=== PATIENT | male | born 1970 | race Caucasian/White ===

== ENCOUNTER → 2020-07-16 11:47 | Outpatient (CLI) | payer SELFPAY ==
--- NOTE | 2020-07-16 | DI.RAD.S_ITS ---
PROCEDURE: XR LUMBAR SPINE 2-3V INDICATIONS: LBP TECHNIQUE: 3 views of the lumbar spine were acquired. COMPARISON: None. FINDINGS: Bones: 5 [id number]-[id number] vertebrae are present. There is normal bony alignment. No vertebral body compression fractures. Degenerative endplate changes throughout lower thoracic and lumbar spine is seen. No suspicious bony lesions. Soft tissues: Overlying bowel gas pattern is normal. No suspicious soft tissue calcifications. IMPRESSION: Mild degenerative disc disease throughout lumbar spine. No acute compression fracture or spondylolisthesis. Dictated by: Duncan Conti M.D. on 07/16/2020 at 14:27 Approved by: Duncan Conti M.D. on 07/16/2020 at 14:27
== END ==
DX: M54.5 Low back pain (principal); M51.36 Other intervertebral disc degeneration, lumbar region
CPT/HCPCS: 72100

== ENCOUNTER → 2024-04-07 08:00 | Outpatient (CLI) | payer OTHER, SELFPAY | PROVIDERS: PCP Family Medicine; Referring Provider Family Medicine; Visit Provider Surgery | DX: Z53.8 Procedure and treatment not carried out for other reasons (principal) ==

== ENCOUNTER 2024-12-07 11:19 | Emergency (ER) | payer BC, SELFPAY ==
[2024-12-07 11:37] VITALS: BP 140/87; PULSE 90; RESP 20; TEMP 37; O2SAT 100; BMI 30.7
--- NOTE | 2024-12-07 11:49 | DI.RAD.S_ITS ---
PROCEDURE: XR CHEST 1V INDICATIONS: chest pain TECHNIQUE: One view of the chest was acquired. COMPARISON: None. FINDINGS: Surgical changes and devices: None. Lungs and pleura: Lungs are clear. No pleural effusions or pneumothorax. Mediastinum: Mediastinal contours appear normal. Heart size is normal. Bones and chest wall: No suspicious bony lesions. Overlying soft tissues appear unremarkable. IMPRESSION: No acute cardiopulmonary abnormality is seen. Dictated by: Lester Goetz M.D. on 12/07/2024 at 12:38 Approved by: Lester Goetz M.D. on 12/07/2024 at 12:42
--- NOTE | 2024-12-07 11:52 | PC.NURSE ---
1150 pt called x3 to do line/labs/ekg. Not in waiting room.
--- NOTE | 2024-12-07 12:31 | EKG_ITS ---
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
[2024-12-07 12:46] LABS: Add Manual Diff / Slide Review NO; Basophils Absolute Auto 100 /uL (0-100); Basophils Percent Auto 0.8 % (0-2); Eosinophils Absolute Auto 100 /uL (0-450); Eosinophils Percent Auto 1.3 % (2-4); Hematocrit 33.5 % (41-53); Hemoglobin 10.8 g/dL (13.5-17.5); Lymphocytes Absolute Auto 1400 /uL (1100-4500); Lymphocytes Percent Auto 15.7 % (25-40); Mean Corpuscular HGB Conc 32.3 % (30-36); Mean Corpuscular Hemoglobin 25.3 PG (26-34); Mean Corpuscular Volume 78.4 fL (80-100); Monocytes Absolute Auto 500 /uL (0-900); Monocytes Percent Auto 5.6 % (3-14); Neutrophils Absolute Auto 6800 /uL (1500-7000); Neutrophils Percent Auto 76.6 % (50-75); Platelet Count 442 X10^3/uL (150-400); Red Blood Cell Count 4.27 X10^6/uL (4.5-5.9); Red Cell Distribution Width 17.5 % (11.6-14.8); White Blood Cell Count 8.9 X10^3/uL (4.5-11.0)
[2024-12-07 12:54] LABS: Prothrombin Time 11.8 SECONDS (9.4-12.5)
[2024-12-07 12:57] LABS: PTT Partial Thromboplastin Tim 35 SECONDS (25.1-36.5)
[2024-12-07 12:58] LABS: Alanine Aminotransferase 40 IU/L (<50); Albumin 4.1 g/dL (3.5-5.0); Albumin Globulin Ratio 1.3 (1.0-2.8); Alkaline Phosphatase 98 U/L (38-126); Aspartate Aminotransferase 27 IU/L (17-59); BUN Creatinine Ratio 14.1 (6-22); Bilirubin Total 0.3 mg/dL (0.2-1.3); Blood Urea Nitrogen 14 mg/dL (9-20); Calcium 8.8 mg/dL (8.4-10.2); Carbon Dioxide 26 mmol/L (22-32); Chloride 103 mmol/L (98-107); Creatine Kinase 169 U/L (55-170); Estimated Glomerular Filt Rate > 60 mL/min (>60); Globulin 3.1 g/dL (1.7-4.1); Glucose 145 mg/dL (70-100); HEMOLYSIS < 15 (0-50); Lipase 64 U/L (23-300); Magnesium 1.9 mg/dL (1.6-2.3); Sodium 139 mmol/L (137-145); Total Protein 7.2 g/dL (6.3-8.2)
[2024-12-07 13:10] LABS: NT-proBNP (BNP-Adult 18+) 60 pg/mL (<125); Troponin I < 0.012 ng/mL (0.01-0.034)
[2024-12-07 14:00] VITALS: PULSE 90; O2SAT 100
[2024-12-07 14:01] VITALS: BP 158/90; PULSE 95; RESP 16; O2SAT 100
--- NOTE | 2024-12-07 14:08 | PC.NURSE ---
Lungs are clear. Pt breathing as though there is an obstruction in throat. Does not appear in respiratory distress. Sats 100% on RA. When answering questions or talking on phone throat breathing stops.
--- NOTE | 2024-12-07 14:52 | ED.SOB ---
HPI - SOB/Dyspnea General Chief Complaint: Urogenital-Male Stated Complaint: Semen back up/ check breathing Time Seen by Provider: 12/07/24 14:27 Source: patient Mode of arrival: Ambulatory Limitations: no limitations History of Present Illness HPI Narrative: Patient is a 54-year-old male who admits to using methamphetamine presents today with bilateral testicular pain and back. He feels like his semen is backing up causing some hardening in his testicle. He has had increased masturbation to try and relieve the pressure and pain. He does audible shortness of breath but he actually denies any kind of shortness of breath. No chest pain fever or chills. He denies absolutely any sort of injury to his testicles. He has no penile drainage. Reports no concern for STDs. Patient no to have kind of a hoarse voice and states that his voice has been like this for about 6 months. Denies any tobacco smoking. Related Data Previous Rx's Medication Instructions Recorded peg 3350-sod sulf,dtpqg-[id number] 1,000 ml PO DIRECTED #2,000 mL 03/03/24 178.7-7.3-0.5-1.12-0.9 gram oral soln (Suflave) doxycycline hyclate 100 mg capsule 100 mg PO BID #14 caps 12/07/24 Allergies Allergy/AdvReac Type Severity Reaction Status Date / Time No Known Drug Allergies Allergy Unverified 12/07/24 11:17 Patient History Medical History (Updated 12/07/24 @ 18:47 by Caryn Webster DO) Anxiety Shoulder pain Fracture Foot pain Carpal tunnel syndrome Ankle pain Hemorrhoids Heartburn Chronic low back pain Periumbilical hernia Family History (Updated 12/01/23 @ 15:31 by Jerald Jason MD) Grandfather Prostate cancer Social History Smoking Status: Never smoker alcohol intake: current (6/wk) substance use type: marijuana (2-3x per week) Smoking Status: Never smoker Exam Initial Vital Signs Initial Vital Signs: Vital Signs Temperature 98.6 F 12/07/24 11:37 Pulse Rate 90 12/07/24 11:37 Respiratory Rate 20 12/07/24 11:37 Blood Pressure 140/87 12/07/24 11:37 Pulse Oximetry 100 12/07/24 11:37 Oxygen Delivery Method Room Air 12/07/24 11:37 GENERAL: Alert well-appearing 74-year-old male and in no acute distress. HEENT: Head atraumatic,EOMI, pupils reactive, face symmetric, moist mucous membranes CARDIOVASCULAR: Regular rate and rhythm without murmurs, rubs or gallops. RESPIRATORY: Clear breath sounds bilaterally some wheezing with inhalation but no exhalation no obvious respiratory distress speaks in full sentences without any sort of difficulty ABDOMEN: Soft, nontender. Normoactive bowel sounds all 4 quadrants. No guarding or rebound. : Nurse Silvino present for exam. Left testicle is hardened kind in the inguinal canal no obvious scrotal swelling or erythema no penile discharge right testicle nontender no hard any. Left sides not in any abnormal position EXTREMITIES: Normal range of motion, no clubbing or edema. Neurovascularly intact NEUROLOGICAL: Alert and oriented x4.Normal gait and speech. Cranial nerves II through XII grossly intact. SKIN: Warm, dry, no laceration, no petechiae, no rashes or lesions. Course Orders Ordered: ED Orders 12/07/24 11:49 XR chest 1V Stat EKG-12 Lead Stat 12/07/24 12:37 Complete Blood Count AUTO DIFF Stat Comprehensive Metabolic Panel Stat Lipase Stat Magnesium Stat NT-proBNP (BNP-Adult 18+) Stat PTT Partial Thromboplastin Ángel Stat Prothrombin Time INR Stat Troponin & CK Cardiac Panel Stat 12/07/24 14:58 US scrotum Stat 12/07/24 15:48 Chlamydia Gonorrhea PCR -URINE Stat Urine Drug Screen, Rapid Stat Discontinued Medications Aspirin (Aspirin 81 Mg Chew Tab) 324 mg PO NOW ONE Stop: 12/07/24 11:50 Last Admin: 12/07/24 14:03 Dose: Not Given Documented By: Doxycycline Hyclate (Doxycycline Hyclate 100 Mg Tablet) 100 mg PO NOW ONE Stop: 12/07/24 16:39 Last Admin: 12/07/24 17:09 Dose: 100 mg Documented By: Ceftriaxone Sodium 500 mg/ (Dextrose) 50 mls @ 100 mls/hr IV NOW ONE Stop: 12/07/24 16:39 Last Infusion: 12/07/24 17:40 Dose: Infused Documented By: Admin: 12/07/24 17:09 Dose: 100 mls/hr Documented By: Vital Signs Vital signs: Vital Signs - 8 hr 12/07/24 11:37 12/07/24 14:00 12/07/24 14:01 Temperature 98.6 F Pulse Rate 90 90 Respiratory Rate 20 Blood Pressure 140/87 158/90 H Pulse Oximetry 100 100 Oxygen Delivery Method Room Air 12/07/24 14:01 12/07/24 17:53 Temperature 98.4 F Pulse Rate 95 H Respiratory Rate 16 Blood Pressure 133/78 Pulse Oximetry 100 Oxygen Delivery Method Room Air Room Air MDM - SOB/Dyspnea Lab Data 12/07/24 12:37 12/07/24 12:37 Labs: Lab Results 12/07/24 12/07/24 Range/Units 12:37 15:48 WBC 8.9 (4.5-11.0) X10^3/uL RBC 4.27 L (4.5-5.9) X10^6/uL Hgb 10.8 L (13.5-17.5) g/dL Hct 33.5 L (41-53) % MCV 78.4 L (80-100) fL MCH 25.3 L (26-34) PG MCHC 32.3 (30-36) % RDW 17.5 H (11.6-14.8) % Plt Count 442 H (150-400) X10^3/uL Neut % (Auto) 76.6 H (50-75) % Lymph % (Auto) 15.7 L (25-40) % [place] % (Auto) 5.6 (3-14) % Eos % (Auto) 1.3 L (2-4) % Baso % (Auto) 0.8 (0-2) % Neut # (Auto) 6800 (9568-2557) /uL Lymph # (Auto) 1400 (0056-3126) /uL [place] # (Auto) 500 (0-900) /uL Eos # (Auto) 100 (0-450) /uL Baso # (Auto) 100 (0-100) /uL PT 11.8 (9.4-12.5) SECONDS INR 1.0 (0.9-1.3) APTT 35 (25.1-36.5) SECONDS Sodium 139 (137-145) mmol/L Potassium 4.0 (3.4-5.1) mmol/L Chloride 103 (98-107) mmol/L Carbon Dioxide 26 (22-32) mmol/L BUN 14 (9-20) mg/dL Creatinine 0.99 (0.66-1.25) mg/dL Estimated GFR > 60 (>60) mL/min BUN/Creatinine Ratio 14.1 (6-22) Glucose 145 H (70-100) mg/dL Calcium 8.8 (8.4-10.2) mg/dL Magnesium 1.9 (1.6-2.3) mg/dL Total Bilirubin 0.3 (0.2-1.3) mg/dL AST 27 (17-59) IU/L ALT 40 (<50) IU/L Alkaline Phosphatase 98 (38-126) U/L Total Creatine Kinase 169 (55-170) U/L Troponin I < 0.012 (0.01-0.034) ng/mL NT-Pro-B Natriuret Pep 60 (<125) pg/mL Total Protein 7.2 (6.3-8.2) g/dL Albumin 4.1 (3.5-5.0) g/dL Globulin 3.1 (1.7-4.1) g/dL Albumin/Globulin Ratio 1.3 (1.0-2.8) Lipase 64 (23-300) U/L U Opiates 300ng/mL cut Negative (Negative) Ur Oxycodone Screen Negative (Negative) Urine Methadone Screen Negative (Negative) Ur Barbiturates Screen Negative (Negative) U Tricyclic Antidepress Negative (Negative) Ur Phencyclidine Scrn Negative (Negative) Ur Amphetamines Screen Positive H (Negative) U Methamphetamines Scrn Positive H (Negative) Ur MDMA Scrn (Ecstasy) Positive H (Negative) U Benzodiazepines Scrn Negative (Negative) Urine Cocaine Screen Negative (Negative) U Marijuana (THC) Screen Negative (Negative) Urine pH Normal (Normal) Urine Specific [place] Normal (Normal) Ur Creatinine Normal (Normal) Ur Chlamydia DNA (PCR) Not detected N gonorrhoeae DNA (PCR) Not detected Imaging Data US scrotum: Radiologist's Impression: PROCEDURE: US SCROTUM INDICATIONS: left testicular pain TECHNIQUE: Real-time scanning was performed of the scrotum and testicles, with image documentation. Color and pulse Doppler interrogation was performed of both testicles. COMPARISON: None. FINDINGS: Right: Testicle is normal in size at 3.4 x 2.3 x 2.4 cm, and homogenous in echotexture. Epididymis tail is thickened with increased vascularity. Mild hydrocele. No varicoceles. Overlying scrotal skin is mildly thickened. Left: Testicle is normal in size at 3.6 x 2.2 x 2.8 cm, and homogeneous in echotexture. Epididymis is thickened with increased vascularity. Mild hydrocele. No varicoceles. Overlying scrotal skin is mildly thickened. Doppler: Color and pulse Doppler demonstrate normal and symmetric arterial flow in both testicles. IMPRESSION: Findings concerning for bilateral epididymitis, more pronounced on the left. Small bilateral hydroceles, greater on the left. Dictated by: Bhavin Hidalgo M.D. on 12/07/2024 at 16:33 Chest x-ray: Radiologist's Impression: PROCEDURE: XR CHEST 1V INDICATIONS: chest pain TECHNIQUE: One view of the chest was acquired. COMPARISON: None. FINDINGS: Surgical changes and devices: None. Lungs and pleura: Lungs are clear. No pleural effusions or pneumothorax. Mediastinum: Mediastinal contours appear normal. Heart size is normal. Bones and chest wall: No suspicious bony lesions. Overlying soft tissues appear unremarkable. IMPRESSION: No acute cardiopulmonary abnormality is seen. Dictated by: Lester Goetz M.D. on 12/07/2024 at 12:38 ECG Data Attestation: I personally reviewed and interpreted this ECG as follows: Prior ECG tracings: not available for review Interpretation: Normal sinus rhythm rate 101 RI interval 140 QRS [address] changes no priors to compare no Q-waves or arrhythmia MDM Narrative Medical decision making narrative: [facility] CC: Testicular pain Complicating co-morbidities: Methamphetamine use Medical records reviewed: [ ] Differential considered: Cardiomyopathy with CHF testicular torsion STD COPD, vocal cord mass Exam documented above, pertinent findings include: Patient does have a hoarse voice however he reports that it has been like that for 6 months. Breath sounds are actually clear he does have inspiratory stridor but no expiratory stridor no evidence of respiratory distress no peripheral edema Lab Test results independently reviewed as above. Pertinent findings: CBC WBCs 8.9 hemoglobin 10.8 with hematocrit 33.5 no priors to compare Sodium 139 potassium 4.0 chloride 103 carbon dioxide 26 BUN 14 creatinine 0.9 Troponin negative Independently reviewed EKG as above: No ischemia Imaging studies independently reviewed: Chest x-ray no acute cardiopulmonary process Scrotal ultrasound bilateral epididymitis Consultations: [ ] Treatments: Rocephin, doxycycline Re-evaluations: [ ] Discussion: Patient 54-year-old male presenting today with a variety of symptoms. He is biggest concern is his testicular pain bilaterally worse in the left. On exam he is tender I do think that his testicle is in his inguinal canal it has not necessarily distended but no significant swelling or erythema. He was brought tender bilaterally do not appreciate inguinal hernia. Ultrasound does confirm bilateral epididymitis. Urinalysis is negative for STDs. He was given Rocephin and doxycycline here in the emergency department. He also is having hoarse voice which he reports has been this way for 6 months or more. He has not hypoxic he was no evidence of congestive heart failure COPD think this is maybe upper airway rather than lower airway issue and it is chronic. I encouraged him to go see ENT for further evaluation. He was offered albuterol but declined here. He was anemic but not unstable no active bleeding. Discharge Plan Departure Patient Disposition: Home Clinical Impression: Acute epididymitis, Anemia Instructions: DI for Epididymitis Activity Restrictions/Additional Instructions: *You have been diagnosed with epididymitis *What to do: At this time with antibiotics you should start feeling better. You may need to see Urology for further evaluation As far as your breathing goes you may need to see ENT *Continue to take medications as directed Doxycycline 100 mg twice a day for 7 days *Follow up with your primary care provider in 2-3 days or call [phone] Dr. Burks ENT for your breathe Dr. Schmitt urology *Return to ER if you should have increasing testicular pain swelling redness difficulty breathing or any new, worsening or concerning symptoms Prescriptions: New doxycycline hyclate 100 mg capsule 100 mg PO BID Qty: 14 0RF No Action Suflave 178.7-7.3-0.5 gram recon soln 1,000 ml PO DIRECTED Qty: 2000 0RF Rx Instructions: take as directed by Physician Referrals: Jerald Jason MD [Primary Care Provider] - Luis Alberto Burks MD [Physician] - Jr Schmitt MD [Physician] - Stand Alone Forms: Patient Portal/API/Survey
--- NOTE | 2024-12-07 14:58 | DI.US.S_ITS ---
PROCEDURE: US SCROTUM INDICATIONS: left testicular pain TECHNIQUE: Real-time scanning was performed of the scrotum and testicles, with image documentation. Color and pulse Doppler interrogation was performed of both testicles. COMPARISON: None. FINDINGS: Right: Testicle is normal in size at 3.4 x 2.3 x 2.4 cm, and homogenous in echotexture. Epididymis tail is thickened with increased vascularity. Mild hydrocele. No varicoceles. Overlying scrotal skin is mildly thickened. Left: Testicle is normal in size at 3.6 x 2.2 x 2.8 cm, and homogeneous in echotexture. Epididymis is thickened with increased vascularity. Mild hydrocele. No varicoceles. Overlying scrotal skin is mildly thickened. Doppler: Color and pulse Doppler demonstrate normal and symmetric arterial flow in both testicles. IMPRESSION: Findings concerning for bilateral epididymitis, more pronounced on the left. Small bilateral hydroceles, greater on the left. Dictated by: Bhavin Hidalgo M.D. on 12/07/2024 at 16:33 Approved by: Bhavin Hidalgo M.D. on 12/07/2024 at 16:35
[2024-12-07 16:00] LABS: Ur Creatinine Normal (Normal); Ur Specific Gravity Normal (Normal); Urine Amphetamines Positive (Negative); Urine MDMA Positive (Negative); Urine pH Normal (Normal)
[2024-12-07 16:02] LABS: Urine Methamphetamines Positive (Negative)
[2024-12-07 16:03] LABS: UR Morphine/Opiate cutoff 300 Negative (Negative); Urine Barbiturates Negative (Negative); Urine Benzodiazepines Negative (Negative); Urine Cocaine Negative (Negative); Urine Methadone Negative (Negative); Urine Oxycodone Negative (Negative); Urine Phencyclidine Negative (Negative); Urine Tetrahydrocannabinol Negative (Negative); Urine Tricyclic Antidepressant Negative (Negative)
--- NOTE | 2024-12-07 16:44 | PC.NURSE ---
PT getting ready to leave to go get something to eat. Explained to pt that he needs to wait for MD to review findings. MD in room. Discussing plan of care. Mimbres and cheese provided to pt.
[2024-12-07] MEDS: DOXYCYCLINE HYCLATE 100 MG TABLET PO (17:09)
[2024-12-07] MEDS: cefTRIAXone 500 MG in DEXTROSE 5 % IN WATER 50 ML 100 MG IV (17:09)
[2024-12-07 17:53] VITALS: BP 133/78; TEMP 36.9
[2024-12-07 18:15] LABS: Urine N gonorrhoeae NOT DETECTED
[2024-12-07 18:16] LABS: Urine Chlamydia NOT DETECTED
== END 2024-12-07 17:55 | disposition home or self-care (01) ==
PROVIDERS: Emergency Provider Emergency Medicine; PCP Family Medicine
DX: N45.1 Epididymitis (principal); D64.9 Anemia, unspecified; R07.9 Chest pain, unspecified; R00.0 Tachycardia, unspecified; N50.812 Left testicular pain; N50.811 Right testicular pain
CPT/HCPCS: 36415; 71045; 76870; 80053; 80305; 82550; 83690; 83735; 83880; 84484; 85025; 85610; 85730; 87491; 87591; 93005; 93975; 96365; 99284; J0696

== ENCOUNTER 2025-07-28 10:18 | Emergency (ER) | payer OTHER, SELFPAY ==
[2025-07-28 10:47] VITALS: BP 128/84; PULSE 80; RESP 20; TEMP 36.8; O2SAT 99; BMI 29.0
--- NOTE | 2025-07-28 10:53 | DI.RAD.S_ITS ---
PROCEDURE: XR CHEST 1V INDICATIONS: Shortness of breath TECHNIQUE: One view of the chest was acquired. COMPARISON: , CR, XR CHEST 1V, 12/07/2024, 12:05. FINDINGS: Moderately enlarged cardiopericardial silhouette, cardiomegaly and/or pericardial effusion. The appearance is more than would be expected for prominent epicardial fat pad. Follow-up suggested. Atelectasis or consolidation in the right middle lobe obscuring the right heart border could have a similar appearance. Mildly prominent [place], pulmonary vascular congestion and/or hilar lymph nodes. Mild bibasilar subsegmental atelectasis some of which may be related expiratory result. Cannot exclude superimposed mild bilateral perihilar and lower lobe peribronchial thickening, bronchitis, viral infection, asthma or other process could be considered. No pneumothorax, no pleural effusion. IMPRESSION: Enlarged cardiopericardial silhouette as discussed above. Subsegmental atelectasis. Prominent [place] and peribronchial thickening as discussed above. Follow-up suggested. If symptoms persist or worsen, CT chest could be performed. Dictated by: North Cole M.D. on 07/28/2025 at 11:22 Approved by: North Cole M.D. on 07/28/2025 at 11:34
--- NOTE | 2025-07-28 11:15 | EKG_ITS ---
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
[2025-07-28] MEDS: ALBUTEROL 2.5 MG/3 ML NEB (ADULT) INH (11:21)
[2025-07-28 11:22] VITALS: PULSE 71; RESP 16; O2SAT 97
[2025-07-28 12:32] VITALS: BP 135/88; PULSE 76; RESP 20; O2SAT 99
--- NOTE | 2025-07-28 12:35 | ED_ITS ---
HPI - SOB/Dyspnea <Corina Gambino PA-C - Last Filed: 07/28/25 17:07> General Chief Complaint: Shortness of Breath/Dyspnea Stated Complaint: hard time breathing Time Seen by Provider: 07/28/25 11:02 Source: patient Mode of arrival: Family Vehicle Limitations: no limitations History of Present Illness HPI Narrative: Mr. Downey is a pleasant 55-year-old male with a past medical history of IV methamphetamine use, quit 2 weeks ago, who presents to the emergency department for intermittent shortness of breath x1 year. Patient states he just got health insurance and is hoping to figure out why he has been having trouble breathing. Denies chest pain, fevers, abdominal pain, nausea, vomiting, diarrhea. Former smoker. Former alcohol use. Related Data Previous Rx's ?Medication ?Instructions ?Recorded peg 3350-sod sulf,gtcby-hey-zzf 1,000 ml PO DIRECTE D #2,000 mL 03/03/24 178.7-7.3-0.5-1.12-0.9 gram oral soln (Suflave) doxycycline hyclate 100 mg capsule 100 mg PO BID #14 c aps 12/07/24 albuterol sulfate 90 mcg/actuation 2 puff inhalation Q ID PRN 07/28/25 aerosol inhaler shortness of breath or wheez ing #6.7 grams Allergies Allergy/AdvReac Type Severity Reaction Status Date / Time No Known Drug Allergies Allergy Verified 07/28/25 10:47 Review of Systems <Corina Gambino PA-C - Last Filed: 07/28/25 17:07> Review of Systems ROS Unobtainable: All systems reviewed & are unremarkable except as noted in HPI and below Patient History <Corina Gambino PA-C - Last Filed: 07/28/25 17:07> Medical History Anxiety Shoulder pain Fracture Foot pain Carpal tunnel syndrome Ankle pain Hemorrhoids Heartburn Chronic low back pain Periumbilical hernia Family History Grandfather Prostate cancer Social History Smoking Status: Former smoker alcohol intake: current (6/wk) substance use type: marijuana (2-3x per week) Smoking Status: Former smoker Exam <Corina Gambino PA-C - Last Filed: 07/28/25 17:07> Narrative Exam Narrative: GENERAL: 55 year old patient appears stated age. Well-developed patient, in no acute distress. HEAD: Atraumatic. Normocephalic. EYES: No scleral icterus. No injection or drainage. ENT: Chronic nasal bridge deformity. NECK: Trachea midline. Cervical ROM intact. CARDIOVASCULAR: Regular rate and rhythm. RESPIRATORY: ?Nonlabored respirations. ?Speaking in clear, full sentences. ?Patient has inspiratory wheezing/rhonchi in left upper lobe, right upper lobe right middle lobe right lower lobe. No expiratory abnormal breath sounds. GASTROINTESTINAL: Abdomen soft, non-tender, nondistended. EXTREMITIES: No LE edema. NEURO: AOx3. ?Clear speech. ?Moves all 4 extremities appropriately. SKIN: No rash or erythema of visible areas Initial Vital Signs Initial Vital Signs: Vital Signs Temperature 98.2 F 07/28/25 10:47 Pulse Rate 80 07/28/25 10:47 Respiratory Rate 20 07/28/25 10:47 Blood Pressure 128/84 07/28/25 10:47 Pulse Oximetry 99 07/28/25 10:47 Oxygen Delivery Method Room Air 07/28/25 10:47 <Caryn Webster DO - Last Filed: 07/29/25 11:00> Initial Vital Signs Initial Vital Signs: Vital Signs Temperature 98.2 F 07/28/25 10:47 Pulse Rate 80 07/28/25 10:47 Respiratory Rate 20 07/28/25 10:47 Blood Pressure 128/84 07/28/25 10:47 Pulse Oximetry 99 07/28/25 10:47 Oxygen Delivery Method Room Air 07/28/25 10:47 Scores <Corina Gamibno PA-C - Last Filed: 07/28/25 17:07> PERC Score Age greater than or equal to 50 years: Yes Heart rate greater than or equal to 100 bpm: No Room Air O2 Sat less than 95%: No Unilateral leg swelling: No Recent trauma or surgery: No Hemoptysis: No Prior PE or DVT: No Hormone Use: No Total PERC Score: 1 <Caryn Webster DO - Last Filed: 07/29/25 11:00> PERC Score Total PERC Score: 1 Course <Corina Gambino PA-C - Last Filed: 07/28/25 17:07> Orders Ordered: Discontinued Medications Albuterol (Albuterol 2.5 Mg/3 Ml Neb (Adult)) 2.5 mg INH NOW ONE Stop: 07/28/25 11:19 Last Admin: 07/28/25 11:21 Dose: 2.5 mg Documented By: BENI Vital Signs Vital signs: Vital Signs - 8 hr 07/28/25 10:47 07/28/25 11:22 07/28/25 12:32 Temperature 98.2 F Pulse Rate 80 71 76 Respiratory Rate 20 16 20 Blood Pressure 128/84 135/88 Pulse Oximetry 99 97 99 Oxygen Delivery Method Room Air Room Air Room Air 07/28/25 14:01 07/28/25 14:49 Temperature 97.9 F Pulse Rate 70 79 Respiratory Rate 18 18 Blood Pressure 124/75 128/90 Pulse Oximetry 99 96 Oxygen Delivery Method Room Air Room Air <Caryn Webster DO - Last Filed: 07/29/25 11:00> Orders Ordered: Discontinued Medications Albuterol (Albuterol 2.5 Mg/3 Ml Neb (Adult)) 2.5 mg INH NOW ONE Stop: 07/28/25 11:19 Last Admin: 07/28/25 11:21 Dose: 2.5 mg Documented By: BENI Vital Signs Vital signs: Vital Signs - 8 hr 07/28/25 10:47 07/28/25 11:22 07/28/25 12:32 Temperature 98.2 F Pulse Rate 80 71 76 Respiratory Rate 20 16 20 Blood Pressure 128/84 135/88 Pulse Oximetry 99 97 99 Oxygen Delivery Method Room Air Room Air Room Air 07/28/25 14:01 07/28/25 14:49 Temperature 97.9 F Pulse Rate 70 79 Respiratory Rate 18 18 Blood Pressure 124/75 128/90 Pulse Oximetry 99 96 Oxygen Delivery Method Room Air Room Air MDM - SOB/Dyspnea <Corina Gambino PA-C - Last Filed: 07/28/25 17:07> Medical Records Attestation: I reviewed the patient's medical records. Lab Data 07/28/25 12:31 07/28/25 12:31 Labs: Lab Results 07/28/25 07/28/25 Range/Units 10:31 12:31 WBC 7.1 (4.5-11.0) X10^3/uL RBC 5.12 (4.5-5.9) X10^6/uL Hgb 12.6 L (13.5-17.5) g/dL Hct 38.9 L (41-53) % MCV 76.1 L (80-100) fL MCH 24.6 L (26-34) PG MCHC 32.3 (30-36) % RDW 22.6 H (11.6-14.8) % Plt Count 260 (150-400) X10^3/uL Neut % (Auto) 58.5 (50-75) % Lymph % (Auto) 25.4 (25-40) % Throckmorton % (Auto) 8.4 (3-14) % Eos % (Auto) 6.1 H (2-4) % Baso % (Auto) 1.6 (0-2) % Neut # (Auto) 4100 (3548-0972) /uL Lymph # (Auto) 1800 (0108-8752) /uL Throckmorton # (Auto) 600 (0-900) /uL Eos # (Auto) 400 (0-450) /uL Baso # (Auto) 100 (0-100) /uL RBC Morphology See below Anisocytosis 1+ H Microcytosis 1+ H PT 11.2 (9.4-12.5) SECONDS INR 1.0 (0.9-1.3) D-Dimer 409 (<500) ng/ml Sodium 137 (137-145) mmol/L Potassium 4.1 (3.4-5.1) mmol/L Chloride 101 (98-107) mmol/L Carbon Dioxide 28 (22-32) mmol/L BUN 19 (9-20) mg/dL Creatinine 0.83 (0.66-1.25) mg/dL Estimated GFR > 60 (>60) mL/min BUN/Creatinine Ratio 22.9 H (6-22) Glucose 139 H (70-99) mg/dL Lactate 1.4 (0.7-2.1) mmol/L Calcium 9.2 (8.4-10.2) mg/dL Total Bilirubin 0.3 (0.2-1.3) mg/dL AST 23 (17-59) IU/L ALT 21 (<50) IU/L Alkaline Phosphatase 77 (38-126) U/L Troponin I < 0.012 (0.01-0.034) ng/mL NT-Pro-B Natriuret Pep < 20 (<125) pg/mL Total Protein 7.9 (6.3-8.2) g/dL Albumin 4.6 (3.5-5.0) g/dL Globulin 3.3 (1.7-4.1) g/dL Albumin/Globulin Ratio 1.4 (1.0-2.8) Imaging Data Chest x-ray: Radiologist's Impression: PROCEDURE: XR CHEST 1V INDICATIONS: Shortness of breath TECHNIQUE: One view of the chest was acquired. COMPARISON: [facility], , XR CHEST 1V, 12/07/2024, 12:05. FINDINGS: Moderately enlarged cardiopericardial silhouette, cardiomegaly and/or pericardial effusion. The appearance is more than would be expected for prominent epicardial fat pad. Follow-up suggested. Atelectasis or consolidation in the right middle lobe obscuring the right heart border could have a similar appearance. Mildly prominent yari, pulmonary vascular congestion and/or hilar lymph nodes. Mild bibasilar subsegmental atelectasis some of which may be related expiratory result. Cannot exclude superimposed mild bilateral perihilar and lower lobe peribronchial thickening, bronchitis, viral infection, asthma or other process could be considered. No pneumothorax, no pleural effusion. IMPRESSION: Enlarged cardiopericardial silhouette as discussed above. Subsegmental atelectasis. Prominent yari and peribronchial thickening as discussed above. Follow-up suggested. If symptoms persist or worsen, CT chest could be performed. Dictated by: Notrh Cole M.D. on 07/28/2025 at 11:22 Approved by: North Cole M.D. on 07/28/2025 at 11:34 CT Chest: Radiologist's Impression: PROCEDURE: CT CHEST W CON INDICATIONS: chronic SOB, abnormal XR, abnormal R lung sounds TECHNIQUE: After the administration of intravenous contrast, 5 mm thick sections acquired from the pulmonary apices to the posterior costophrenic angles. 1 mm axial lung, 5 mm thick coronal and sagittal reformats and 7 mm axial MIP were acquired. For radiation dose reduction, the following was used: automated exposure control, adjustment of mA and/or kV according to patient size. COMPARISON: None. FINDINGS: Image quality: Diagnostic. Lower Neck: No enlarged lymph nodes. Thyroid: No thyroid nodules which require sonographic follow up, per consensus guidelines. Axillae: No enlarged lymph nodes. Chest Wall: Unremarkable. Bones: Unremarkable. Lungs and Pleura: No pneumothorax or pleural effusions. No consolidation or suspicious nodules. Note is made of 2 adjacent far posterior right lower lobe subpleural pulmonary nodules, measuring 2 mm and 3 mm best seen on axial series 3, image 181. Heart: Heart size is normal. No pericardial effusion. Thoracic Vessels: The aorta and pulmonary arteries demonstrate normal size. Mediastinum and Yari: No enlarged lymph nodes. Esophagus: No wall thickening. No hiatal hernia. Upper Abdomen: Visualized upper abdomen solid organs and bowel loops appear normal. IMPRESSION: Incidental note is made of 2 adjacent presumed old granulomas within the posterior border of the right lower lobe, but no active pneumonia or underlying neoplasm is suspected. Dictated by: Miko Nolen M.D. on 07/28/2025 at 14:03 Approved by: Miko Nolen M.D. on 07/28/2025 at 14:06 [facility] Narrative Medical decision making narrative: 55-year-old male with a past medical history of IV methamphetamine use, quit 2 weeks ago, who presents to the emergency department for intermittent shortness of breath x1 year. Differential diagnosis includes but isn't limited to reactive airway disease, bronchitis, pleural effusion pericardial effusion, PE, etc. Patient initially started in the main area of the emergency department, received albuterol breathing treatment, transferred to the short-stay area of the emergency department. My physical exam he has in no acute distress, nontoxic- appearing, all vital signs within normal limits. He does have some inspiratory wheezing/rhonchi present primarily on the right lung. His symptoms have been going on for 1 year. States that breathing treatment did not really help with his breathing but did help ?clear his head?. X-ray obtained in triage reveals enlarged pericardial silhouette, subsegmental atelectasis, prominent yari and peribronchial thickening. Lab work obtained including CBC, CMP, lactic, troponin, D-dimer, BNP. Patient denies pain. Labs reveal normal WBC count 7.1, slightly decreased hemoglobin 12.6, hematocrit 38.9, MCV 76.1 MCH 24.6, microcytic anemia. Normal coags. Negative D-dimer 409. Sodium 137, potassium 4.1, BUN 19 creatinine 0.83. Glucose 139. Lactate normal 1.4. Negative troponin. Negative BNP. In the setting of negative D- Dimer, no tachycardia or hypoxia, plain CT chest with contrast ordered for further evaluation of abnormalities on x-ray, shortness of breath. CT chest reassuring, not identifying many of the abnormalities that were read on chest x-ray. CT chest does reveal incidental note made of 2 adjacent presumed old granulomas/pulmonary nodules within the posterior border of the right lower lobe, but no active pneumonia or underlying neoplasm. 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 I did prescribe him an albuterol inhaler since he did have some improvement with this today. Recommended he follow up with the PCP for further evaluation. Discussed strict ER return precautions. Patient verbalized understanding of all information agreeable with the plan, he was provided with some resources, he is stable for discharge home. <Caryn Webster, - Last Filed: 07/29/25 11:00> Lab Data Labs: Lab Results 07/28/25 07/28/25 Range/Units 10:31 12:31 WBC 7.1 (4.5-11.0) X10^3/uL RBC 5.12 (4.5-5.9) X10^6/uL Hgb 12.6 L (13.5-17.5) g/dL Hct 38.9 L (41-53) % MCV 76.1 L (80-100) fL MCH 24.6 L (26-34) PG MCHC 32.3 (30-36) % RDW 22.6 H (11.6-14.8) % Plt Count 260 (150-400) X10^3/uL Neut % (Auto) 58.5 (50-75) % Lymph % (Auto) 25.4 (25-40) % Throckmorton % (Auto) 8.4 (3-14) % Eos % (Auto) 6.1 H (2-4) % Baso % (Auto) 1.6 (0-2) % Neut # (Auto) 4100 (6086-6667) /uL Lymph # (Auto) 1800 (4621-6688) /uL Throckmorton # (Auto) 600 (0-900) /uL Eos # (Auto) 400 (0-450) /uL Baso # (Auto) 100 (0-100) /uL RBC Morphology See below Anisocytosis 1+ H Microcytosis 1+ H PT 11.2 (9.4-12.5) SECONDS INR 1.0 (0.9-1.3) D-Dimer 409 (<500) ng/ml Sodium 137 (137-145) mmol/L Potassium 4.1 (3.4-5.1) mmol/L Chloride 101 (98-107) mmol/L Carbon Dioxide 28 (22-32) mmol/L BUN 19 (9-20) mg/dL Creatinine 0.83 (0.66-1.25) mg/dL Estimated GFR > 60 (>60) mL/min BUN/Creatinine Ratio 22.9 H (6-22) Glucose 139 H (70-99) mg/dL Lactate 1.4 (0.7-2.1) mmol/L Calcium 9.2 (8.4-10.2) mg/dL Total Bilirubin 0.3 (0.2-1.3) mg/dL AST 23 (17-59) IU/L ALT 21 (<50) IU/L Alkaline Phosphatase 77 (38-126) U/L Troponin I < 0.012 (0.01-0.034) ng/mL NT-Pro-B Natriuret Pep < 20 (<125) pg/mL Total Protein 7.9 (6.3-8.2) g/dL Albumin 4.6 (3.5-5.0) g/dL Globulin 3.3 (1.7-4.1) g/dL Albumin/Globulin Ratio 1.4 (1.0-2.8) Discharge Plan Departure Patient Disposition: Home Clinical Impression: Incidental pulmonary nodule Reactive airway disease Qualifiers: Asthma severity: unspecified severity Asthma persistence: unspecified Asthma complication type: uncomplicated Qualified Code(s): J45.909 - Unspecified asthma, uncomplicated Instructions: DI for Asthma -- Adult, DI for Pulmonary Nodule Activity Restrictions/Additional Instructions: Dear Shayan, Thank you for coming to the emergency department. Today you were evaluated for shortness of breath. Overall your lab work is reassuring. Your CT scan did show 2 small pulmonary nodules/granulomas. You did have some wheezing here in the emergency department and were treated with an albuterol breathing treatment. I have sent a prescription for an albuterol inhaler to [facility], please use this as needed for worsening shortness of breath or wheezing, I do suspect you may have chronic bronchitis. Please follow up with the primary care doctor. Please return to the emergency department if develop any new or worsening symptoms. Please follow up with your primary care doctor within the next 2-3 days for ER follow-up. (If you do not have a PCP you can call [phone]. ?to schedule an appointment with an [facility] Primary Care Provider) IF YOU DEVELOP ANY NEW OR WORSENING SYMPTOMS, RETURN TO THE ER! Please read the attached instructions, they highlight more specific treatments and interventions for you at home. Thank you for letting me participate in your care, Corina Gambino PA-C Prescriptions: New albuterol sulfate 90 mcg/actuation HFA aerosol inhaler 2 puff inhalation QID PRN (Reason: shortness of breath or wheezing) Qty: 6.7 1RF No Action Suflave 178.7-7.3-0.5 gram recon soln 1,000 ml PO DIRECTED Qty: 2000 0RF Rx Instructions: take as directed by Physician doxycycline hyclate 100 mg capsule 100 mg PO BID Qty: 14 0RF Referrals: Jerald Jason MD [Primary Care Provider, Family Practice] Stand Alone Forms: Patient Portal/API ED Sign-out <Caryn Webster, DO - Last Filed: 07/29/25 11:00> Cosign ED Attending Tiera Attestation: I was available for consultation.
[2025-07-28 12:48] LABS: Add Manual Diff / Slide Review NO; Hematocrit 38.9 % (41-53); Hemoglobin 12.6 g/dL (13.5-17.5); Lymphocytes Absolute Auto 1800 /uL (1100-4500); Mean Corpuscular HGB Conc 32.3 % (30-36); Mean Corpuscular Hemoglobin 24.6 PG (26-34); Mean Corpuscular Volume 76.1 fL (80-100); Platelet Count 260 X10^3/uL (150-400)
[2025-07-28 12:52] LABS: INR 1.0 (0.9-1.3); Prothrombin Time 11.2 SECONDS (9.4-12.5)
[2025-07-28 12:59] LABS: Alanine Aminotransferase 21 IU/L (<50); Albumin 4.6 g/dL (3.5-5.0); Albumin Globulin Ratio 1.4 (1.0-2.8); Alkaline Phosphatase 77 U/L (38-126); Blood Urea Nitrogen 19 mg/dL (9-20); Calcium 9.2 mg/dL (8.4-10.2); Carbon Dioxide 28 mmol/L (22-32); Chloride 101 mmol/L (98-107); Estimated Glomerular Filt Rate > 60 mL/min (>60); Globulin 3.3 g/dL (1.7-4.1); Glucose 139 mg/dL (70-99); HEMOLYSIS < 15 (0-50); Lactate (Lactic Acid) 1.4 mmol/L (0.7-2.1); Potassium 4.1 mmol/L (3.4-5.1); Sodium 137 mmol/L (137-145); Total Protein 7.9 g/dL (6.3-8.2)
[2025-07-28 13:08] LABS: Anisocytosis 1+; Microcytosis 1+
[2025-07-28 13:10] LABS: NT-proBNP (BNP-Adult 18+) < 20 pg/mL (<125); Troponin I < 0.012 ng/mL (0.01-0.034)
--- NOTE | 2025-07-28 13:12 | DI.CT.S_ITS ---
PROCEDURE: CT CHEST W CON INDICATIONS: chronic SOB, abnormal XR, abnormal R lung sounds TECHNIQUE: After the administration of intravenous contrast, 5 mm thick sections acquired from the pulmonary apices to the posterior costophrenic angles. 1 mm axial lung, 5 mm thick coronal and sagittal reformats and 7 mm axial MIP were acquired. For radiation dose reduction, the following was used: automated exposure control, adjustment of mA and/or kV according to patient size. COMPARISON: None. FINDINGS: Image quality: Diagnostic. Lower Neck: No enlarged lymph nodes. Thyroid: No thyroid nodules which require sonographic follow up, per consensus guidelines. Axillae: No enlarged lymph nodes. Chest Wall: Unremarkable. Bones: Unremarkable. Lungs and Pleura: No pneumothorax or pleural effusions. No consolidation or suspicious nodules. Note is made of 2 adjacent far posterior right lower lobe subpleural pulmonary nodules, measuring 2 mm and 3 mm best seen on axial series 3, image 181. Heart: Heart size is normal. No pericardial effusion. Thoracic Vessels: The aorta and pulmonary arteries demonstrate normal size. Mediastinum and Yari: No enlarged lymph nodes. Esophagus: No wall thickening. No hiatal hernia. Upper Abdomen: Visualized upper abdomen solid organs and bowel loops appear normal. IMPRESSION: Incidental note is made of 2 adjacent presumed old granulomas within the posterior border of the right lower lobe, but no active pneumonia or underlying neoplasm is suspected. Dictated by: Miko Nolen M.D. on 07/28/2025 at 14:03 Approved by: Miko Nolen M.D. on 07/28/2025 at 14:06
[2025-07-28 14:01] VITALS: BP 124/75; PULSE 70; RESP 18; O2SAT 99
[2025-07-28 14:49] VITALS: BP 128/90; PULSE 79; RESP 18; TEMP 36.6; O2SAT 96
== END 2025-07-28 14:52 | disposition home or self-care (01) ==
PROVIDERS: Emergency Medicine; Emergency Provider Physician Assistant; PCP Family Medicine
DX: J45.909 Unspecified asthma, uncomplicated (principal); R91.1 Solitary pulmonary nodule; Z87.891 Personal history of nicotine dependence
CPT/HCPCS: 36415; 71045; 71260; 80053; 83605; 83880; 84484; 85025; 85379; 85610; 93005; 94640; 99284; J7613; Q9967